=== PATIENT | male | born 2000 ===

== ENCOUNTER 2022-12-02 19:57 | Emergency (ER) | payer SELFPAY ==
[2022-12-02 19:59] VITALS: BP 140/87; PULSE 92; RESP 20; TEMP 37.3; O2SAT 100
--- NOTE | 2022-12-02 22:07 | PC.NURSE ---
Pt was called to be taken back to a room several times and did not show up.
== END 2022-12-02 22:07 | disposition left against medical advice (07) ==
DX: S51.851A Open bite of right forearm, initial encounter (principal)
CPT/HCPCS: 99199